=== PATIENT | female | born 1935 | race Caucasian/White ===

== ENCOUNTER → 2016-10-11 | Outpatient (CLI) | payer MEDICARE, OTHER ==
--- NOTE | 2016-10-12 12:45 | RADONC ---
RADIATION ONCOLOGY CONSULTATION NOTE: DATE: 10/11/2016 CHART NUMBER: [id number]. DIAGNOSIS: Bladder cancer. STAGE: Recurrent. ECOG PERFORMANCE STATUS: 3. CONSULTATION NOTE: Ms. 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 The patient's history of malignancies actually began in the year 2000 when she underwent a left modified radical mastectomy for a left-sided breast carcinoma. She was subsequently treated with chemotherapy. No postoperative radiation therapy was delivered at that time. In addition, the patient was diagnosed long ago, reported to be almost 20 years ago, with a diagnosis of bladder cancer. She had multiple transurethral resections of her bladder tumor as well as intrafascicular BCG. Further, the patient had a history of an abdominal aortic aneurysm repair as well as an aortic aneurysm in the chest for which she is being followed with annual CT scans. The routine CT scan for her aneurysm done in 2013 showed a 1.4 cm right upper lobe lesion. A PET CT was done 03/11/2014 and revealed an SUV value of 8.4 in the right upper lobe mass. There was no other evidence at that time of metabolic activity. The patient subsequently underwent Cyber[employer]ife radiosurgery consisting of 5000 cGy in 4 fractions, which was completed on 05/18/2014. The patient did quite well but a PET CT scan was done 01/25/2015 for routine followup and showed marked hypermetabolic uptake associated two minimally enlarged right hilar nodes consistent with metastatic disease. There was also a slight soft tissue density increase adjacent to the fiducial marker, which was worrisome for tumor recurrence, and at that time was not hypermetabolic. On 02/17/2015, the patient underwent an endobronchial ultrasound-guided fine-needle aspiration biopsy of a right hilar R11 lymph node. Pathology was positive for metastatic squamous cell carcinoma. The patient was then seen by ms and treated in our department for a dose of 6000 cGy delivered in 33 fractions of 200 cGy each from 03/31/2015 through 2014. 3-D conformal therapy was utilized. The patient has been followed since and has developed some pleural effusions and some consolidation but no definitive recurrence. She has had thoracentesis done and I have been told that the results showed no evidence of malignant cells. On 06/04/2016, the patient underwent PET CT scan. This showed no hypermetabolic lesions within the left lung. There was noted to be an increase in her thoracic aortic aneurysm with a chronic dissection. The aneurysm measured 5.4 cm. Previously, 6 months earlier on 11/30/2015, it was 4.8 cm. Again, the findings showed a large right pleural effusion with near complete collapse of the right upper lobe. There was some hypermetabolic right hilar activity at 3.8. There was a question of hypermetabolic activity in the right breast, which was not previously seen. The patient has continued to be followed as well for her urinary bladder, and on underwent cystoscopy. This once again revealed a 5 cm tumor throughout the bladder, which showed progression from previous cystoscopy. The tumor was overlying the right ureteral orifice as well. The patient is now being presented to us for discussion of palliative radiation therapy in order to obtain some type of local control for her bladder cancer. PAST MEDICAL HISTORY: As noted above, the patient has a past medical history for breast cancer, lung cancer and this bladder cancer. In addition, she has hypertension, urinary tract infections and cardiac problems. She is presenting on nasal oxygen in a wheelchair. ALLERGIES: The patient is allergic to SULFA DRUGS, CIPRO, NEOMYCIN, LIDOCAINE and NIFEDIPINE. SOCIAL HISTORY: The patient has smoked 1-1/2 packs of cigarettes per day for 20 years. She quit in 1994. She drinks alcohol daily. FAMILY HISTORY: The patient's family history is negative for malignancies. REVIEW OF SYSTEMS: The patient's review of systems is positive for some shortness of breath. She requires nasal oxygen. Her review of systems is otherwise positive for occasional blood in the urine and decreased energy. She denies nausea, vomiting , fevers, chills, night sweats, diplopia, headaches, anxiety or depression, anorexia, weight loss, visual disturbances, chest pain, bowel difficulties, bone pain or neurological problems. IMAGING STUDIES: I have personally reviewed the patient's PET CT scan done on 06/04/2016, which showed some minimal hypermetabolic uptake in the right hilar region as well as a large right pleural effusion. ASSESSMENT: I believe the patient would be a candidate for palliative radiation therapy and I have so informed her. I have discussed with the patient in detail the potential benefits as well as possible acute and chronic sequelae of external beam radiation therapy. We discussed logistics of treatment planning, simulation subsequent fractionated daily radiation treatments. I am placing this patient on our discussion list for multidisciplinary tumor conference. My question is whether or not she would be a candidate for radiation sensitizing chemotherapy as well. The bladder cancer at this point appears to be treatable for long-term control and not just palliation. Of course, the patient's overall condition may restrict her ability to tolerate such aggressive therapy. We are attempting to obtain more records with regards to her lung management. I am unsure as to whether we have recurrent disease in the lungs at this point. Clearly, she is becoming more short of breath. Her lung is being managed by Dr. Chucky Rincon, and we will attempt to obtain records from his office. Thirdly, I am concerned with the increasing dissection of his thoracic aorta. I will defer, of course, to the expertise of a vascular surgeon with regards to this. We will present this at tumor conference as well and obtain expert opinions from our vascular surgeon. The question is whether or not she would be a surgical candidate presents itself mixed. Once again, in summary, I am scheduling the patient for simulation for palliative radiation therapy versus definitive radiation therapy to her bladder. We are setting her up with medical oncology for their expert opinion with regards to her candidacy for systemic treatment. In addition, I am setting her up for discussion at multidisciplinary tumor conference. We will also set her up vascular surgery to see if there is any issues with regards to her dissecting thoracic aortic aneurysm. In addition, we will obtain any other records from Dr. Rincon who has been managing her lung issues. Thank you for allowing us to participate in the care of this very pleasant woman. If I can be of any further assistance or provide you with any information, please free to contact me anytime. As always, warm regards. cc: Rajwinder Carrizales MD *Dr. Aubrey Real *Kameron Kat DO *Chucky Rincon MD [facility]
--- NOTE | 2016-10-17 11:08 | RADONC ---
RADIATION ONCOLOGY SIMULATION NOTE: DATE OF SERVICE: 10/17/2016 CHART NO: [id number] Ms. Sampson was taken to the CT scan for CT simulation of her bladder field. CT was accomplished without difficulty or discomfort. Radiation treatment planning is underway and radiation treatments will begin subsequently. An immobilization device was created and will be used throughout the course of treatment. It was created without difficulty or discomfort. I was physically present throughout the course of CT simulation.
== END ==
LOC: M ONCR 10:20
PROVIDERS: ATTEND Radiology Radiation Oncology
DX: C67.9 Malignant neoplasm of bladder, unspecified (principal)

== ENCOUNTER 2016-10-17 13:38 | Outpatient (RCR) | payer MEDICARE, OTHER | END 2016-10-24 | LOC: M ONCR 13:38 | PROVIDERS: ATTEND Radiology Radiation Oncology | DX: C67.9 Malignant neoplasm of bladder, unspecified (principal); C34.11 Malignant neoplasm of upper lobe, right bronchus or lung ==

== ENCOUNTER → 2016-10-17 | Outpatient (CLI) | payer MEDICARE, OTHER ==
[2016-10-17 13:22] LABS: MEAN CORPUSCULAR HGB CONC 32.2 g/dl (32.0-36.5); MEAN CORPUSCULAR VOLUME 89.9 fl (80.0-96.0); RED CELL DISTRIBUTION WIDTH 15.8 % (11.5-14.5); WHITE BLOOD COUNT 6.5 K/mm3 (4.0-10.0)
== END ==
LOC: M RAD 10:34
PROVIDERS: ATTEND Radiology Radiation Oncology
DX: C67.9 Malignant neoplasm of bladder, unspecified (principal)

== ENCOUNTER 2016-10-25 09:19 | Outpatient (RCR) | payer MEDICARE, OTHER ==
--- NOTE | 2016-10-31 07:57 | RADONC ---
RADIATION ONCOLOGY PROGRESS NOTE DATE: 10/30/2016 CHART NUMBER: [id number] Ms. Sampson is presently at a dose of 360 cGy to her bladder and is tolerating treatment quite well at this point with no complaints related to her radiation therapy. She is having no bladder pain or discomfort. REVIEW OF SYSTEMS: The patient's review of systems is positive for physical limitations secondary to old age. She is a wheelchair. She also has some hematuria. It is otherwise largely noncontributory. Denies nausea, vomiting, fevers, chills, night sweats, diplopia, headaches, anxiety or depression, anorexia, weight loss, visual disturbances, chest pain, urinary or bowel difficulties, bone pain, or neurological problems. PHYSICAL EXAMINATION: The patient's skin is in good condition with no evidence of radiation change present. There is no moist or dry desquamation. The remainder of her physical exam remains unchanged. Ms. Sampson is tolerating treatments quite well and radiation will continue as scheduled.
--- NOTE | 2016-11-06 07:35 | RADONC ---
RADIATION ONCOLOGY PROGRESS NOTE DATE: 11/05/2016 CHART NUMBER: [id number] Ms. Sampson is presently at a dose of 1080 cGy to her bladder and is tolerating treatments quite well at this point with no complaints related to her radiation therapy. She is having no bladder or bowel difficulties. No bone pain. REVIEW OF SYSTEMS: The patient's review of systems is noncontributory. Denies nausea, vomiting, fevers, chills, night sweats, diplopia, headaches, anxiety or depression, anorexia, weight loss, visual disturbances, chest pain, urinary or bowel difficulties, bone pain, or neurological problems. PHYSICAL EXAMINATION: The patient's skin is in good condition with no evidence of radiation change present. There is no moist or dry desquamation. The remainder of her physical exam remains unchanged. Ms. Sampson is tolerating her treatments quite well and radiation will continue as scheduled.
--- NOTE | 2016-11-12 14:58 | RADONC ---
RADIATION ONCOLOGY PROGRESS NOTE DATE: 11/12/2016 CHART NUMBER: [id number] Ms. Sampson is presently at a dose of 1980 centigrade to her bladder and is tolerating treatments quite well at this point with no complaints related to her radiation therapy. She is having no hematuria or other difficulties. REVIEW OF SYSTEMS: The patient's review of systems is noncontributory. She denies nausea, vomiting, fevers, chills, night sweats, diplopia, headaches, anxiety or depression, anorexia, weight loss, visual disturbances, chest pain, urinary or bowel difficulties, bone pain, or neurological problems. PHYSICAL EXAMINATION: The patient's skin is in good condition with no evidence of radiation change present. There is no moist or dry desquamation. The remainder of her physical exam remains unchanged. Ms. Sampson is tolerating treatments quite well and radiation will continue as scheduled.
--- NOTE | 2016-11-20 07:34 | RADONC ---
RADIATION ONCOLOGY PROGRESS NOTE DATE: 11/19/2016 CHART NUMBER: [id number] Ms. Sampson is presently at a dose of 2700 centigrade to her bladder and is tolerating treatments quite well at this point with no complaints related to her radiation therapy. She is having no urinary difficulties at this time. She has no blood in her urine. She has no other complaints related to her radiation therapy. PHYSICAL EXAMINATION: The patient's skin is in good condition with no evidence of moist or dry desquamation. The remainder of her physical exam remains unchanged. Ms. Sampson as is tolerating treatments quite well and radiation will continue as scheduled.
== END 2016-11-23 ==
LOC: M ONCR 09:19
PROVIDERS: ATTEND Radiology Radiation Oncology
DX: C67.9 Malignant neoplasm of bladder, unspecified (principal); C34.11 Malignant neoplasm of upper lobe, right bronchus or lung

== ENCOUNTER → 2016-10-26 | Outpatient (CLI) | payer MEDICARE, OTHER ==
--- NOTE | 2016-10-27 08:42 | REP ---
CT of the chest without IV contrast: Comparison is 10/07/2015. There is a [id number] right pleural effusion. There is a right pleural effusion previously. There is focal consolidation in the right upper lobe extending to the right hilus. This could be an acute infiltrate, atelectasis or postradiation change. There is a focal density in the right lower lobe anterior to the pleural effusion which could represent a mass, infiltrate or atelectasis. There are no infiltrates, effusions or masses in the left lung. There is no mediastinal adenopathy. There is no axillary adenopathy. There are surgical clips in the left axilla and there is a left mastectomy. These findings are unchanged. There is an aneurysm of the distal descending thoracic aorta at the diaphragmatic hiatus measuring 5.6 by 4.6 cm, similar to the prior study. The study is insensitive for hilar adenopathy in the absence of IV contrast. Impression: [id number] right pleural effusion. Focal right upper lobe density extending to the hilus and a focal right lower lobe density. These densities could represent infiltrates, atelectasis, neoplasm or postradiation change. Aneurysm of the distal descending thoracic aorta not significantly changed from 10/07/2015. Signed by Abdi Rainey MD 10/27/2016 08:34 A
--- NOTE | 2016-10-27 08:52 | REP ---
CT abdomen pelvis without IV and oral contrast: Comparisons 10/07/2015. There is an aneurysm of the distal descending abdominal aorta at the diaphragmatic hiatus, described in detail on the chest CT, not significantly changed from 10/07/2015. The unenhanced hepatic parenchyma is homogeneous. The gallbladder, pancreas and spleen are unremarkable. The adrenals are unremarkable. The renal cortices appear atrophic bilaterally. This is unchanged. Renal cortical cysts are noted on the left, unchanged. There is a right percutaneous nephrostomy as an interval change. There is no bowel distension. Mesentery is unremarkable. The abdominal aorta is unremarkable and unchanged. The left flank hernia is again noted. A portion of the descending colon is within the hernia as previously. Pelvis: There is an intraluminal lipoma in the cecum measuring 3.6 x 2.9 cm, not significantly changed. There is no adenopathy or ascites. Sigmoid colon diverticulosis without diverticulitis is again identified. There are surgical clips adjacent to the distal abdominal aorta at the bifurcation, as previously. There is a fem fem vascular graft as previously. There are no lytic, blastic or destructive skeletal changes. Impression: Right pleural effusion. 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 Bilateral renal cortical atrophy. Broad-based left flank hernia, unchanged. Intraluminal lipoma in the cecum. Fem/fem vascular graft. No adenopathy, ascites or mass. Percutaneous nephrostomy on the right. No significant interval change except for the percutaneous nephrostomy. Signed by Abdi Rainey MD 10/27/2016 08:44 A
== END ==
LOC: M RAD 16:56
PROVIDERS: ATTEND Surgery Vascular Surgery
DX: I71.2 Thoracic aortic aneurysm, without rupture (principal)

== ENCOUNTER 2016-11-28 08:28 | Outpatient (RCR) | payer MEDICARE, OTHER ==
--- NOTE | 2016-11-30 11:59 | RADONC ---
RADIATION ONCOLOGY PROGRESS NOTE DATE: 11/28/2016 CHART NUMBER: [id number]. Ms. Sampson is presently at a dose of 3600 centigrade to her bladder and is tolerating treatments quite well at this point with no complaints related to her radiation therapy. She is having no hematuria. REVIEW OF SYSTEMS: The patient's review of systems is noncontributory. Denies nausea, vomiting, fevers, chills, night sweats, diplopia, headaches, anxiety or depression, anorexia, weight loss, visual disturbances, chest pain, urinary or bowel difficulties, bone pain, or neurological problems. PHYSICAL EXAMINATION: The patient's skin is in good condition with no evidence of moist or dry desquamation. The remainder of her physical exam remains unchanged. Ms. Sampson is tolerating treatments quite well and radiation will continue as scheduled.
--- NOTE | 2016-12-04 07:12 | RADONC ---
RADIATION ONCOLOGY PROGRESS NOTE: DATE: 12/03/2016 CHART NUMBER: [id number] Ms. Sampson is presently at a dose of 4140 cGy to her bladder and is tolerating treatments quite well at this point with no complaints related to her radiation therapy. She is having no urinary or bowel difficulties and no bone pain. REVIEW OF SYSTEMS: The patient's review of systems is positive for continued physical limitations. She remains in a wheelchair. She is on nasal oxygen.. She denies nausea, vomiting, fevers, chills, night sweats, diplopia, headaches, anxiety or depression, anorexia, weight loss, visual disturbances, chest pain, urinary or bowel difficulties, bone pain, or neurological problems. PHYSICAL EXAMINATION: The patient's skin is in good condition with no evidence of moist or dry desquamation. The remainder of her physical exam remains unchanged. Ms. Sampson is tolerating treatments quite well and radiation will continue as scheduled.
--- NOTE | 2016-12-10 15:18 | RADONC ---
RADIATION ONCOLOGY PROGRESS NOTE DATE: 12/10/2016 CHART NUMBER: [id number] Ms. Sampson is presently at a dose of 4860 cGy to her bladder and is tolerating treatments quite well at this point with no complaints related to her radiation therapy. She is having no urinary or bowel difficulties and no bone pain. She has no hematuria. The patient's review of systems is positive for the physical limitations secondary to her age. She is using nasal oxygen. The remainder of her review of systems noncontributory. She denies nausea, vomiting, fevers, chills, night sweats, diplopia, headaches, anxiety or depression, anorexia, weight loss, visual disturbances, chest pain, urinary or bowel difficulties, bone pain, or neurological problems. PHYSICAL EXAMINATION: The patient's skin is in good condition with no evidence of moist or dry desquamation. The remainder of her physical exam remains unchanged. Ms. Sampson is tolerating treatments quite well and radiation will continue as scheduled.
--- NOTE | 2016-12-17 08:01 | RADONC ---
RADIATION ONCOLOGY TREATMENT SUMMARY DATE: 12/14/2016 CHART NUMBER: [id number] DIAGNOSIS: Bladder cancer. STAGE: Recurrent. ECOG PERFORMANCE STATUS: 3 TREATMENT SUMMARY: Ms. 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 We treated the patient to her bladder for a total dose of 5400 cGy delivered in 30 fractions of 180 cGy each over 46 elapsed days from 10/29/2016 through 12/14/2016. The patient's bladder was treated on the linear accelerator utilizing 3D conformal therapy with a four field technique initially, anterior and posterior, as well as right and left lateral garcia. That was taken to a dose of 4500 cGy and the remaining five fractions of 180 cGy each for an additional 900 cGy was delivered utilizing lateral garcia, again with 3D conformal technique. 18 MV photons were utilized throughout the course of treatment. Care was taken to maintain the small bowel and other structures within their tolerance limits. Ms. Sampson tolerated her treatments quite well without difficulty and with resolution of her hematuria. She was able complete therapy as prescribed without interruption. I have scheduled the patient to see me again in 1 month for further followup. She will also continue to be followed by her other physicians as well. cc: MD Rajwinder Farnsworth MD Nicholas Yerkes, MD
== END 2016-12-24 ==
LOC: M ONCR 08:28
PROVIDERS: ATTEND Radiology Radiation Oncology
DX: C67.9 Malignant neoplasm of bladder, unspecified (principal)

== ENCOUNTER → 2016-12-27 | Outpatient (REF) | payer MEDICARE, OTHER ==
[2016-12-27 17:35] LABS: INR 1.33
== END ==
LOC: M LAB REF 16:26
PROVIDERS: ATTEND Internal Medicine Medical Oncology
DX: C67.9 Malignant neoplasm of bladder, unspecified (principal); R79.1 Abnormal coagulation profile

== ENCOUNTER → 2017-01-23 | Outpatient (CLI) | payer MEDICARE, OTHER ==
--- NOTE | 2017-01-24 10:03 | RADONC ---
RADIATION ONCOLOGY FOLLOWUP NOTE: DATE: 01/23/2017 CHART NUMBER: [id number] DIAGNOSIS: Bladder cancer. STAGE: Recurrent. ECOG PERFORMANCE STATUS: 3 Ms. 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 The patient presents today reporting that she is doing quite well with no complaints at this time related to her radiation therapy or disease. She is having no further hematuria or difficulties. She has no bowel difficulties. She is having no difficulty breathing. REVIEW OF SYSTEMS: The patient's review of systems is positive for the physical limitations secondary to old age. She remains in a wheelchair at this time. She is requiring nasal oxygen. She denies nausea, vomiting, fevers, chills, night sweats, diplopia, headaches, anxiety, depression, anorexia, weight loss, visual disturbances, chest pain, urinary or bowel difficulties, bone pain or neurological problems. PHYSICAL EXAMINATION: PHYSICAL EXAMINATION: The patient is a well-developed, well-nourished female in no acute distress. HEENT exam is normocephalic, atraumatic. Extraocular movements are intact. There is no palpable cervical, supraclavicular, infraclavicular, axillary, or inguinal lymphadenopathy present. Lungs are clear to auscultation and percussion. Heart has a regular rate and rhythm. Abdomen is benign with no hepatosplenomegaly, masses, or tenderness. Skeletal examination reveals no tenderness to pressure or percussion of the bony skeleton. Extremities reveal no clubbing, cyanosis, or edema. Neurologic exam is grossly intact, as is the remainder of the physical examination. ASSESSMENT: Ms. Sampson is clinically stable at this point. Since she is continuing with close management and followup by her other physicians at her request, I have set her up for followup in our office on a as needed basis. She has been instructed to contact me if she develops any new symptoms or has any questions or if I could be of any assistance whatsoever at anytime. cc: MD Rajwinder Farnsworth MD Nicholas Yerkes, MD
== END ==
LOC: M ONCR 13:04
PROVIDERS: ATTEND Radiology Radiation Oncology
DX: C34.11 Malignant neoplasm of upper lobe, right bronchus or lung (principal); C67.9 Malignant neoplasm of bladder, unspecified